=== PATIENT | male | born 1990 | race Caucasian/White ===

== ENCOUNTER 2020-09-03 12:36 | Emergency (ER) | payer OTHER ==
[~2020-09-03 12:36] MED LIST: BACTRIM DS TAB1 EACH PO; IBUPROFEN600 MG PO; PREDNISONE 50 M50 MG PO; PROTONIX40 MG PO; TAMIFLU75 MG PO
== END 2020-09-03 20:26 | disposition home or self-care (01) ==
LOC: ER1 12:36
DX: B34.9 Viral infection, unspecified (principal); F17.200 Nicotine dependence, unspecified, uncomplicated; Z20.822 Contact with and (suspected) exposure to COVID-19
CPT/HCPCS: 71045; 87081; 87880; 99283; U0002